=== PATIENT | male | born 2000 | race Caucasian/White ===

== ENCOUNTER → 2020-06-25 | Outpatient (CLI) | payer OTHER | LOC: YCFC.O 12:23 | PROVIDERS: ATTEND Nurse Practitioner Family | DX: Z20.828 Contact with and (suspected) exposure to other viral communicable diseases (principal) ==

== ENCOUNTER 2020-07-08 16:03 | Emergency (ER) | payer SELFPAY ==
[2020-07-08] MEDS ORDERED: ONDANSETRON ODT 8 MG TAB SL ONE (17:01)
[2020-07-08] MEDS ORDERED: SUCRALFATE 1 GM/10 ML 1 GM UD PO ONE (17:01)
[2020-07-08] MEDS ORDERED: FAMOTIDINE 20 MG TAB PO ONE (17:01)
--- NOTE | 2020-07-08 18:09 | ED.PDOC ---
History of Present Illness - General Chief Complaint: GI Problem Stated Complaint: vomiting Time Seen by Provider: 07/08/20 17:01 Source: patient Exam Limitations: no limitations - History of Present Illness Initial Comments: The patient is a 20-year-old male presented emergency room secondary to 2 episodes of nausea and vomiting over the last 24 hours. No blood and no bile. No diarrhea. No fever. The patient is not currently nauseated. No abdominal pain. No syncope. No fever. No sore throat or runny nose. He is only history of any intestinal issues is some chronic reflux disease that is untreated. Timing/Duration: 24 hours Severity: mild Improving Factors: nothing Worsening Factors: nothing Associated Symptoms: loss of appetite, nausea/vomiting Home Medications: Ambulatory Orders Omeprazole Magnesium [Omeprazole] 20 mg PO DAILY #60 tab 07/08/20 Ondansetron Odt [Zofran ODT] 4 mg PO Q8HR PRN #5 tab 07/08/20 Sucralfate Tab [Carafate Tab] 1 gm PO QID #60 tab 07/08/20 Review of Systems - Review of Systems Constitutional: States: no symptoms reported EENTM: States: no symptoms reported Respiratory: States: no symptoms reported Cardiology: States: no symptoms reported Gastrointestinal/Abdominal: States: see HPI Genitourinary: States: no symptoms reported Musculoskeletal: States: no symptoms reported Skin: States: no symptoms reported Neurological: States: no symptoms reported Endocrine: States: no symptoms reported All other Systems: No Change from Baseline Past Medical History (General) - Patient Medical History Hx Stroke: No Hx Asthma: No Hx Cardiac Disorders: No Hx Congestive Heart Failure: No Hx Diabetes: No Hx Renal Disease: No Surgical History: no surgical history - Social History Hx Tobacco Use: No Family Medical History - Family History Mother Hx Family;Other: seizures Physical Exam - Physical Exam General Appearance: Alert, Comfortable, No apparent distress Eye Exam: bilateral normal Ears, Nose, Throat: hearing grossly normal, normal pharynx Neck: full range of motion, supple Respiratory: lungs clear, normal breath sounds, no respiratory distress, no accessory muscle use Cardiovascular/Chest: normal peripheral pulses, regular rate, rhythm, no edema Peripheral Pulses: radial,right: 2+, radial,left: 2+ Gastrointestinal/Abdominal: non tender, soft Rectal Exam: deferred Back Exam: no CVA tenderness, no vertebral tenderness Extremity: normal range of motion, no pedal edema, normal capillary refill 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 This is most likely a viral gastroenteritis complicating and already significant gastroesophageal reflux issues. The patient be written for some Zofran to control any nausea and vomiting he will also be written for Carafate for a couple of weeks and omeprazole for a couple of months. He needs to keep himself well-hydrated. Maintain a bland diet. ER warnings are given for any worsening. Keep routine follow-up with primary care doctor. elsa harris [phone] - Results/Orders Results/Orders: Glucose was 70 Rapid test for coronavirus is negative. Departure - Departure Clinical Impression: Viral gastroenteritis GERD with esophagitis Qualifiers: Esophagitis bleeding: without hemorrhage Qualified Code(s): K21.00 - Gastro- esophageal reflux disease with esophagitis, without bleeding Disposition: Discharge to Home or Self Care Condition: Fair Departure Forms: ED Discharge - Pt. Copy, Patient Portal Self Enrollment Instructions: Acid Reflux and GERD in Adults (DC) Diet: bland diet Activity: increase activity as tolerated Referrals: SHANELLE HERNANDEZ ANALYSIS MANAGER [Primary Care Provider] - 1-2 Weeks Prescriptions: Ondansetron Odt [Zofran ODT] 4 mg PO Q8HR PRN #5 tab PRN Reason: Nausea--Moderate Sucralfate Tab [Carafate Tab] 1 gm PO QID #60 tab Omeprazole Magnesium [Omeprazole] 20 mg PO DAILY #60 tab Home Medications: Ambulatory Orders Omeprazole Magnesium [Omeprazole] 20 mg PO DAILY #60 tab 07/08/20 Ondansetron Odt [Zofran ODT] 4 mg PO Q8HR PRN #5 tab 07/08/20 Sucralfate Tab [Carafate Tab] 1 gm PO QID #60 tab 07/08/20 Additional Instructions: The patient is a 20-year-old male presented emergency room secondary to nausea and vomiting over the last 24 hours. This is most likely a viral gastroenteritis complicating and already significant gastroesophageal reflux issues. The patient be written for some Zofran to control any nausea and vomiting he will also be written for Carafate for a couple of weeks and omeprazole for a couple of months. He needs to keep himself well-hydrated. Maintain a bland diet. ER warnings are given for any worsening. Keep routine follow-up with primary care doctor.
[2020-07-08 18:30] VITALS: BP 132/75; TEMP 98.3; O2SAT 99
== END 2020-07-08 18:24 | disposition home or self-care (01) ==
LOC: ER 16:03
DX: A08.4 Viral intestinal infection, unspecified (principal); K21.00 Gastro-esophageal reflux disease with esophagitis, without bleeding; Z20.828 Contact with and (suspected) exposure to other viral communicable diseases